=== PATIENT | male | born 1990 | race African-American/Black ===

== ENCOUNTER 2017-06-02 11:16 | Emergency (ER) | payer OTHER ==
[~2017-06-02] VITALS: Ht 187.9 cm; Wt 95.3 kg
[~2017-06-02 11:16] MED LIST: EPI EZ PEN1 MG/ML IM; FLEXERIL10 MG PO; Fioricet 325 MG1 TAB PO; MOTRIN800 MG PO; NKHM; PEPCID20 MG PO; VICODIN 500 MG-1 TAB PO; VOLTAREN50 M1 PO
== END 2017-06-02 14:28 | disposition home or self-care (01) ==
LOC: ED 11:16
DX: S30.860A Insect bite (nonvenomous) of lower back and pelvis, initial encounter (principal); F17.200 Nicotine dependence, unspecified, uncomplicated; W57.XXXA Bitten or stung by nonvenomous insect and other nonvenomous arthropods, initial encounter; Y93.89 Activity, other specified; Y92.9 Unspecified place or not applicable; Y99.9 Unspecified external cause status

== ENCOUNTER 2018-08-26 14:44 | Emergency (ER) | payer SELFPAY ==
[~2018-08-26] VITALS: Ht 187.9 cm; Wt 102.1 kg
[2018-08-26] MEDS ORDERED: ANAPROX DS550 MG PO (15:25)
== END 2018-08-26 16:48 | disposition home or self-care (01) ==
LOC: ED 14:44
DX: S62.111A Displaced fracture of triquetrum [cuneiform] bone, right wrist, initial encounter for closed fracture (principal); F17.200 Nicotine dependence, unspecified, uncomplicated; X58.XXXA Exposure to other specified factors, initial encounter; Y93.89 Activity, other specified; Y92.89 Other specified places as the place of occurrence of the external cause; Y99.8 Other external cause status

== ENCOUNTER → 2018-09-07 | Outpatient (CLI) | payer OTHER ==
[~2018-09-07] MED LIST changes: +ANAPROX DS550 MG PO
== END | disposition home or self-care (01) ==
LOC: ORTHO 02:21
DX: S62.101A Fracture of unspecified carpal bone, right wrist, initial encounter for closed fracture (principal); X58.XXXA Exposure to other specified factors, initial encounter; Y93.89 Activity, other specified; Y92.89 Other specified places as the place of occurrence of the external cause; Y99.8 Other external cause status

== ENCOUNTER → 2018-09-15 | Outpatient (CLI) | payer OTHER | END | disposition home or self-care (01) | LOC: CT 09-11 13:00 | DX: M25.532 Pain in left wrist (principal) ==

== ENCOUNTER 2018-12-12 02:56 | Emergency (ER) | payer OTHER ==
[~2018-12-12] VITALS: Ht 187.9 cm; Wt 102.1 kg
[2018-12-12 03:45] LABS: BASO % 0.2 % (0.0-1.0); EOS # 0.2 10*3/uL (0.0-0.4); EOS % 1.8 % (1.0-4.0); HEMOGLOBIN 16.4 g/dl (14.0-18.0); LYMPH # 2.4 10*3/uL (1.3-4.4); LYMPH % 27.5 % (27.0-41.0); MEAN CELL VOLUME 85.5 fl (80.0-94.0); MEAN CORPUSCULAR HGB 28.6 pg (27.0-31.0); MEAN CORPUSCULAR HGB CONC 33.5 g/dl (33.0-37.0); MEAN PLATELET VOLUME 11.4 fl (9.6-12.3); MONO # 0.6 10*3/uL (0.1-1.0); MONO % 6.6 % (3.0-9.0); NEUT # 5.5 10*3/uL (2.3-7.9); NEUT % 63.7 % (47.0-73.0); PLATELET COUNT AUTOMATED 190 10*3/uL (130-400); RED BLOOD COUNT 5.73 10*6/uL (4.50-5.90); RED CELL DISTRI WIDTH 12.7 % (0-14.5); WHITE BLOOD COUNT 8.7 10*3/uL (4.8-10.8)
[2018-12-12 03:59] LABS: ALBUMIN 4.3 gm/dl (3.1-4.5); ALKALINE PHOSPHATASE 61 U/L (45-117); BUN 12 mg/dl (7-24); CHLORIDE 106 mmol/L (98-107); CREATININE 1.19 mg/dL (0.70-1.30); POTASSIUM 3.7 mmol/L (3.5-5.1); SGOT/AST 15 IU/L (3-35); SGPT/ALT 37 U/L (12-78); SODIUM 140 mmol/L (136-145); TOTAL PROTEIN 7.5 gm/dL (6.4-8.2)
== END 2018-12-12 05:28 | disposition home or self-care (01) ==
LOC: ED 02:56
PROVIDERS: Student in an Organized Health Care Education/Training Program
DX: R19.05 Periumbilic swelling, mass or lump (principal); R19.04 Left lower quadrant abdominal swelling, mass and lump; R22.32 Localized swelling, mass and lump, left upper limb; R22.41 Localized swelling, mass and lump, right lower limb; F17.200 Nicotine dependence, unspecified, uncomplicated

== ENCOUNTER 2019-01-21 19:48 | Emergency (ER) | payer SELFPAY ==
[~2019-01-21] VITALS: Ht 187.9 cm; Wt 102.1 kg
[2019-01-21 20:21] LABS: BASO % 0.4 % (0.0-1.0); EOS # 0.1 10*3/uL (0.0-0.4); EOS % 1.3 % (1.0-4.0); HEMATOCRIT 51.9 % (42.0-52.0); HEMOGLOBIN 17.3 g/dl (14.0-18.0); LYMPH # 2.5 10*3/uL (1.3-4.4); LYMPH % 26.3 % (27.0-41.0); MEAN CELL VOLUME 85.6 fl (80.0-94.0); MEAN CORPUSCULAR HGB 28.5 pg (27.0-31.0); MEAN CORPUSCULAR HGB CONC 33.3 g/dl (33.0-37.0); MEAN PLATELET VOLUME 11.2 fl (9.6-12.3); MONO # 0.6 10*3/uL (0.1-1.0); MONO % 6.6 % (3.0-9.0); NEUT # 6.1 10*3/uL (2.3-7.9); NEUT % 65.1 % (47.0-73.0); PLATELET COUNT AUTOMATED 196 10*3/uL (130-400); RED BLOOD COUNT 6.06 10*6/uL (4.50-5.90); RED CELL DISTRI WIDTH 13.2 % (0-14.5); WHITE BLOOD COUNT 9.4 10*3/uL (4.8-10.8)
[2019-01-21 20:52] LABS: ACETAMINOPHEN (TYLENOL) < 5.0 ug/ml (10-30); ALBUMIN 4.1 gm/dl (3.1-4.5); ALKALINE PHOSPHATASE 78 U/L (45-117); BUN 8 mg/dl (7-24); CHLORIDE 107 mmol/L (98-107); CREATININE 1.17 mg/dL (0.70-1.30); POTASSIUM 3.7 mmol/L (3.5-5.1); SGOT/AST 25 IU/L (3-35); SGPT/ALT 36 U/L (12-78); SODIUM 142 mmol/L (136-145)
[2019-01-21 21:00] LABS: THYROID STIM HORMONE (HS) 0.823 uIU/ml (0.358-4.75)
== END 2019-01-22 09:10 | disposition home or self-care (01) ==
LOC: ED 19:48
PROVIDERS: Emergency Medicine Emergency Medical Services
DX: F43.29 Adjustment disorder with other symptoms (principal); F10.129 Alcohol abuse with intoxication, unspecified; Y90.9 Presence of alcohol in blood, level not specified

== ENCOUNTER 2019-08-06 20:14 | Inpatient (IN) | payer SELFPAY ==
[~2019-08-06] VITALS: Ht 187.9 cm; Wt 99.4 kg
--- NOTE | ~2019-08-06 | EKG ---
[place], [place] ELECTROCARDIOGRAM REPORT NAME: ARPIT LUCAS UNIT #: [id number] ROOM: 518 DOCTOR: ARLETH DRAFT REPORT BIRTHDATE: [birth year] [facility] Test Date: 2019-08-06 Test Time: 21:27:40 Pat Name: ARPIT LUCAS Department: Room: 518 Gender: M [employer]: Jose Manuel Marr : 1990 Requested By: VICENTA FLOREZ PA-C Order Number: [id number] Reading MD: Arnaud Poon MD Measurements Intervals [place] Rate: 87 P: -25 [place]: 142 QRS: 221 QRSD: 107 T: 24 QT: 365 QTc: 439 Interpretive Statements Sinus rhythm Borderline low voltage, extremity leads Consider right ventricular hypertrophy ST elev, probable normal early repol pattern Electronically Signed On 08-08-2019 7:45:58 PDT by Arnaud Poon MD CM:EKGRPT:ELECTROCARDIOGRAM REPORT [id number] VICENTA FLOREZ PA-C EPIPHANY DRAFT REPORT VICENTA FLOREZ PA-C
[2019-08-06 20:15] VITALS: BP 144/91
--- NOTE | 2019-08-06 20:33 | NUR ---
PT PROMPTED FOR URINE SPECIMEN.
[2019-08-06 21:33] LABS: BASO # 0.1 10*3/uL (0.0-0.1); BASO % 0.4 % (0.0-1.0); EOS % 0.1 % (1.0-4.0); HEMATOCRIT 56.7 % (42.0-52.0); HEMOGLOBIN 18.7 g/dl (14.0-18.0); LYMPH # 2.3 10*3/uL (1.3-4.4); LYMPH % 15.2 % (27.0-41.0); MEAN CELL VOLUME 88.5 fl (80.0-94.0); MEAN CORPUSCULAR HGB 29.2 pg (27.0-31.0); MEAN PLATELET VOLUME 11.1 fl (9.6-12.3); MONO # 1.2 10*3/uL (0.1-1.0); MONO % 7.9 % (3.0-9.0); NEUT # 11.7 10*3/uL (2.3-7.9); NEUT % 75.9 % (47.0-73.0); PLATELET COUNT AUTOMATED 228 10*3/uL (130-400); RED BLOOD COUNT 6.41 10*6/uL (4.50-5.90); RED CELL DISTRI WIDTH 13.3 % (0-14.5); WHITE BLOOD COUNT 15.3 10*3/uL (4.8-10.8)
--- NOTE | 2019-08-06 21:35 | NUR ---
PT C/O SOB.PT PLACED ON 2L O2 VIA NC FOR COMFORT.KAI FLOREZ NOTIFIED.
[2019-08-06 21:43] LABS: INTERNATIONAL NORM RATIO 0.9 (2.0-3.5)
[2019-08-06 21:45] LABS: COLOR YELLOW (YELLOW)
[2019-08-06 21:46] LABS: BILIRUBIN NEGATIVE (NEGATIVE); CLARITY CLEAR (CLEAR); GLUCOSE NEGATIVE (NEGATIVE); KETONE 3+ (NEGATIVE); SPECIFIC GRAVITY > 1.030 (1.005-1.030)
[2019-08-06 21:47] LABS: BLOOD NEGATIVE (NEGATIVE); LEUKO ESTERASE NEGATIVE (NEGATIVE); NITRITE NEGATIVE (NEGATIVE); UROBILINOGEN 0.2 E.U./dl (0.2-1.0)
[2019-08-06 21:48] LABS: MUCOUS 1+
[2019-08-06 21:50] LABS: ALBUMIN 4.6 gm/dl (3.1-4.5); ALKALINE PHOSPHATASE 67 U/L (45-117); BUN 12 mg/dl (7-24); CHLORIDE 103 mmol/L (98-107); CREATININE 1.54 mg/dL (0.70-1.30); POTASSIUM 3.2 mmol/L (3.5-5.1); SGOT/AST 36 IU/L (3-35); SGPT/ALT 54 U/L (12-78); SODIUM 139 mmol/L (136-145); TOTAL PROTEIN 8.3 gm/dL (6.4-8.2)
[2019-08-06 21:53] LABS: TROPONIN I < 0.015 ng/ml (<0.045)
--- NOTE | 2019-08-06 21:53 | NUR ---
LAB CALLED WITH CRITICAL LACTIC OF 4.0. Ashley FLOREZ NOTIFIED.
[2019-08-06 22:22] VITALS: BP 119/77
--- NOTE | 2019-08-06 22:22 | NUR ---
VITALS REASSESSED.PT IN ROOM TALKING ON PHONE.PT REMOVED O2 TUBING.STATES IT DID HELP BUT WAS BOTHERING HIS NOSE.REMAINS 99% ON RA.
[2019-08-07 01:14] VITALS: BP 129/47
--- NOTE | 2019-08-07 01:14 | NUR ---
A 29, admitted to , under the services of NILSA Saldivar DO with a diagnosis of SEVERE SEPSIS. Chief complaint is RIGHT LOWER BACK PAIN STARTING 08/06 1500. Patient arrived via bed from ER. Monitor applied. Initial assessment completed. Vital signs taken and recorded. NILSA SALDIVAR DO / RESIDENTS notified of admission to the unit. Orders received. See assessment for past medical history, medications and allergies. Patient and/or family oriented to unit. [facility] visitation policy reviewed. Clothing/patient valuable form completed. YAMILKA HAN
--- NOTE | 2019-08-07 01:49 | NUR ---
MEDICATED WITH NORCO PER PRN ORDER FOR COMPLAINTS OF HEADACHE AND LOWER BACK PAIN RATING A 3. CALL LIGHT WITHIN REACH. WILL MONITOR FOR EFFECTIVENESS
--- NOTE | 2019-08-07 03:00 | NUR ---
REMAINS AWAKE, PLAYING ON PHONE. STATES RELIEF FROM EARLIER NORCO. IV FLUIDS MAINTAINED. CALL LIGHT WITHIN REACH
--- NOTE | 2019-08-07 06:00 | NUR ---
SLEPT SINCE ARRIVING ON FLOOR. NO DISTRESS NOTED. NO VOICED COMPLAINTS
[2019-08-07 06:12] LABS: ALBUMIN 3.3 gm/dl (3.1-4.5); ALKALINE PHOSPHATASE 51 U/L (45-117); BUN 12 mg/dl (7-24); CHLORIDE 108 mmol/L (98-107); CHOLESTEROL 161 mg/dL (<200); CPK 481 U/L (39-308); CREATININE 1.39 mg/dL (0.70-1.30); HDL CHOLESTEROL 76 mg/dl (40-60); LDL CHOLESTEROL 68 mg/dL (9-159); PHOSPHOROUS 4.5 mg/dL (2.5-4.9); POTASSIUM 3.9 mmol/L (3.5-5.1); SGOT/AST 23 IU/L (3-35); SGPT/ALT 38 U/L (12-78); SODIUM 141 mmol/L (136-145); TOTAL PROTEIN 6.2 gm/dL (6.4-8.2); TRIGLYCERIDES 85 mg/dl (<150); VLDL CHOLESTEROL 17 mg/dL (6-40)
[2019-08-07 06:19] LABS: BASO % 0.3 % (0.0-1.0); EOS # 0.1 10*3/uL (0.0-0.4); EOS % 1.2 % (1.0-4.0); HEMATOCRIT 48.3 % (42.0-52.0); LYMPH # 2.7 10*3/uL (1.3-4.4); LYMPH % 29.3 % (27.0-41.0); MEAN CELL VOLUME 90.3 fl (80.0-94.0); MEAN CORPUSCULAR HGB 29.9 pg (27.0-31.0); MEAN CORPUSCULAR HGB CONC 33.1 g/dl (33.0-37.0); MEAN PLATELET VOLUME 11.2 fl (9.6-12.3); MONO # 0.8 10*3/uL (0.1-1.0); MONO % 8.7 % (3.0-9.0); NEUT # 5.5 10*3/uL (2.3-7.9); NEUT % 60.2 % (47.0-73.0); PLATELET COUNT AUTOMATED 187 10*3/uL (130-400); RED BLOOD COUNT 5.35 10*6/uL (4.50-5.90); RED CELL DISTRI WIDTH 13.2 % (0-14.5); WHITE BLOOD COUNT 9.2 10*3/uL (4.8-10.8)
[2019-08-07 06:58] LABS: VITAMIN D, 25-HYDROXY 19.3 ng/mL (30-100)
[2019-08-07 07:09] LABS: ACT PARTIAL THROMBO TIME 25.1 SECONDS (20.0-32.1); INTERNATIONAL NORM RATIO 0.9 (2.0-3.5)
[2019-08-07 08:00] VITALS: BP 128/80
--- NOTE | 2019-08-07 08:30 | NUR ---
PATIENT COMPLAINING OF LOWER RIGH FLANK PAIN. MEDICATED WITH NORCO PER ORDERS AND REQUEST.
[2019-08-07 10:44] LABS: URINE AMPHETAMINES < 1000 (1000ng/ml); URINE BARBITURATES < 200 (200ng/ml); URINE BENZODIAZEPINES < 200 (200ng/ml); URINE CANNABINOIDS (THC) > 50 (50ng/ml); URINE COCAINE > 300 (300ng/ml); URINE METHADONE < 300 (300ng/ml); URINE OPIATES > 300 (300ng/ml); URINE PHENCYCLIDINE < 25 (25ng/ml)
[2019-08-07 12:00] VITALS: BP 132/80
[2019-08-07] MEDS ORDERED: NORCO 5-325 TA1 EACH PO (16:03)
--- NOTE | 2019-08-07 16:15 | NUR ---
Discharge instructions reviewed with patient/family. Patient receptive and verbalizes understanding. Follow-up care arranged. Written instructions given to patient/family. PRESCRIPTION GIVEN. HEPLOCK DISCONTINUED. PATIENT AMBULATORY OFF FLOOR. MARIA ELENA SMITH
== END 2019-08-07 16:15 | disposition home or self-care (01) | DRG 871 ==
LOC: ED 20:14 → EDHOLD 08-07 00:24 → 5E 08-07 00:35
PROVIDERS: Hospitalist; Physician Assistant; ADMIT Internal Medicine
DX: A41.9 Sepsis, unspecified organism (principal); N17.0 Acute kidney failure with tubular necrosis; E87.2 Acidosis; R65.20 Severe sepsis without septic shock; F17.210 Nicotine dependence, cigarettes, uncomplicated; F43.20 Adjustment disorder, unspecified; D75.1 Secondary polycythemia; R80.9 Proteinuria, unspecified; R82.4 Acetonuria; N20.0 Calculus of kidney; E55.9 Vitamin D deficiency, unspecified; E87.6 Hypokalemia; Z80.8 Family history of malignant neoplasm of other organs or systems; Z84.89 Family history of other specified conditions; Z83.3 Family history of diabetes mellitus

== ENCOUNTER 2020-01-27 16:49 | Emergency (ER) | payer SELFPAY ==
[~2020-01-27] VITALS: Ht 187.9 cm; Wt 112.5 kg
[~2020-01-27 16:49] MED LIST changes: +NORCO 5-325 TA1 EACH PO
[2020-01-27] MEDS ORDERED: CEPHALEXIN500 M1 PO (19:30)
== END 2020-01-27 19:55 | disposition home or self-care (01) ==
LOC: ED 16:49
DX: S69.91XA Unspecified injury of right wrist, hand and finger(s), initial encounter (principal); F17.210 Nicotine dependence, cigarettes, uncomplicated; X58.XXXA Exposure to other specified factors, initial encounter; Y93.89 Activity, other specified; Y92.89 Other specified places as the place of occurrence of the external cause; Y99.8 Other external cause status

== ENCOUNTER 2020-02-24 15:21 | Emergency (ER) | payer SELFPAY ==
[~2020-02-24] VITALS: Ht 187.9 cm; Wt 108.0 kg
[~2020-02-24 15:21] MED LIST changes: +CEPHALEXIN500 M1 PO
[2020-02-24] MEDS ORDERED: SEPTDS PO (15:36)
[2020-02-24] MEDS ORDERED: KEFLEX500 M1 PO (15:36)
== END 2020-02-24 15:44 | disposition home or self-care (01) ==
LOC: ED 15:21
DX: L02.212 Cutaneous abscess of back [any part, except buttock and flank] (principal); F32.9 Major depressive disorder, single episode, unspecified; F17.200 Nicotine dependence, unspecified, uncomplicated; Z79.899 Other long term (current) drug therapy

== ENCOUNTER → 2020-11-26 | Outpatient (CLI) | payer SELFPAY ==
[~2020-11-26] MED LIST changes: +KEFLEX500 M1 PO; +SEPTDS PO
== END | disposition home or self-care (01) ==
LOC: COVID19 10:39
PROVIDERS: ATTEND Internal Medicine
DX: U07.1 COVID-19 (principal)

== ENCOUNTER → 2021-08-16 | Outpatient (CLI) | payer OTHER | END | disposition home or self-care (01) | LOC: COVID19 15:53 | PROVIDERS: ATTEND Student in an Organized Health Care Education/Training Program | DX: Z11.52 Encounter for screening for COVID-19 (principal) ==

== ENCOUNTER 2022-10-03 19:04 | Emergency (ER) | payer SELFPAY ==
[~2022-10-03] VITALS: Ht 187.9 cm; Wt 112.0 kg
[2022-10-03] MEDS ORDERED: ERYTHROMYCIN OPH1 GM OPH (21:24)
[2022-10-03] MEDS ORDERED: NAPHCON-A EYE D15 ML OP (21:24)
== END 2022-10-03 21:33 | disposition home or self-care (01) ==
LOC: ED 19:04
DX: H10.31 Unspecified acute conjunctivitis, right eye (principal)

== ENCOUNTER 2022-11-13 16:46 | Emergency (ER) | payer SELFPAY ==
[~2022-11-13] VITALS: Ht 187.9 cm; Wt 113.4 kg
[~2022-11-13 16:46] MED LIST changes: +ERYTHROMYCIN OPH1 GM OPH; +NAPHCON-A EYE D15 ML OP
[2022-11-13] MEDS ORDERED: CEPHALEXIN500 M1 PO (22:40)
== END 2022-11-13 23:04 | disposition home or self-care (01) ==
LOC: ED 16:46
DX: S60.222A Contusion of left hand, initial encounter (principal); F17.200 Nicotine dependence, unspecified, uncomplicated; W22.8XXA Striking against or struck by other objects, initial encounter; Y93.89 Activity, other specified; Y92.89 Other specified places as the place of occurrence of the external cause; Y99.8 Other external cause status